=== PATIENT | female | born 1990 | race Caucasian/White ===

== ENCOUNTER 2016-11-26 22:46 | Emergency (ER) | payer MEDICAID, OTHER ==
[~2016-11-26] VITALS: Ht 152.4 cm; Wt 60.0 kg
[2016-11-26 23:38] VITALS: Ht 152.4 cm; Wt 60.0 kg
[2016-11-27] MEDS ORDERED: ONDANSETRON (ODT) 4 MG TAB ODT STA (01:18)
[2016-11-27] MEDS ORDERED: FAMOTIDINE 20 MG TAB PO ONE (01:30)
--- NOTE | 2016-11-27 01:38 | ERD ---
ER Documentation Chief Complaint Date/Time DATE: 11/27/16 TIME: 01:30 Chief Complaint Vomiting and abdominal pain started today. HPI 26-year-old female presents here in emergency department for complaints of vomiting episodes and periumbilical pain started today. Patient vomited multiple times, patient states she vomited multiple times that she found some streaks of blood in the vomit. Patient does not have any diarrhea or constipation. Patient is approximately 12 weeks . Patient is complaining of periumbilical pain, epigastric pain, burning pain, 4/10 scale, not better or worse with anything. Patient does not have any fever or chills. ROS All systems reviewed and are negative except as per history of present illness. Medications Home Meds Reported Medications [none] Unknown Strength No Conflict Check 11/27/16 Allergies Allergies: Coded Allergies: Penicillins (Verified Allergy, Mild, RASHES, 07/24/07) PMhx/Soc Medical and Surgical Hx: pt denies Medical Hx, pt denies Surgical Hx Hx Alcohol Use: No Hx Substance Use: No Hx Tobacco Use: No Smoking Status: Never smoker FmHx Family History: No coronary disease, No diabetes, No other Physical Exam Vitals Vital Signs Date Time Temp Pulse Resp B/P Pulse Ox O2 Delivery O2 Flow Rate FiO2 11/26/16 23:38 98.2 78 18 117/72 99 Physical Exam GENERAL: The patient is well developed and appropriate for usual state of health, in no apparent distress. CHEST: Clear to auscultation bilaterally. There are no rales, wheezes or rhonchi. HEART: Regular rate and rhythm. No murmurs, clicks, rubs or gallops. No S3 or S4. ABDOMEN: Soft, nontender and nondistended. Good bowel sounds. No rebound or guarding. No gross peritonitis. No gross organomegaly or masses. No Haywood sign or McBurney point tenderness. BACK: No midline or flank tenderness. EXTREMITIES: Equal pulses bilaterally. There is no peripheral clubbing, cyanosis or edema. No focal swelling or erythema. Full range of motion. Grossly neurovascularly intact. NEURO: Alert and oriented. Cranial nerves 2-12 intact. Motor strength in all 4 extremities with 5/5 strength. Sensation grossly intact. Normal speech and gait. SKIN: There is no apparent rash or petechia. The skin is warm and dry. HEMATOLOGIC AND LYMPHATIC: There is no evidence of excessive bruising or lymphedema. No gross cervical, axillary, or inguinal lymphadenopathy. Result Diagram: 11/27/16 01311/27/16 013 Results 24 hrs Laboratory Tests Test 11/27/16 01:30 White Blood Count 13.910^3/ul Red Blood Count 4.8410^6/ul Hemoglobin 14.8g/dl Hematocrit 42.6% Mean Corpuscular Volume 88.0fl Mean Corpuscular Hemoglobin 30.6pg Mean Corpuscular Hemoglobin Concent 34.7g/dl Red Cell Distribution Width 11.6% Platelet Count 56445^3/UL Mean Platelet Volume 10.0fl Neutrophils % 85.7% Lymphocytes % 8.3% Monocytes % 4.5% Eosinophils % 0.5% Basophils % 0.1% Nucleated Red Blood Cells % 0.0/100WBC Neutrophils # 11.910^3/ul Lymphocytes # 1.210^3/ul Monocytes # 0.610^3/ul Eosinophils # 0.110^3/ul Basophils # 0.010^3/ul Nucleated Red Blood Cells # 0.010^3/ul Urine Color LT. YELLOW Urine Clarity CLEAR Urine pH 6.5 Urine Specific Seymour 1.020 Urine Ketones 3+ Urine Nitrite NEGATIVE Urine Bilirubin NEGATIVE Urine Urobilinogen 0.2 E.U./dL Urine Leukocyte Esterase TRACE Urine Microscopic RBC 0-2/HPF Urine Microscopic WBC 2-5/HPF Urine Squamous Epithelial Cells FEW Urine Hemoglobin NEGATIVE Urine Glucose NEGATIVE% Urine Total Protein NEGATIVE Sodium Level 140mmol/L Potassium Level 3.5mmol/L Chloride Level 102mmol/L Carbon Dioxide Level 25mmol/L Anion Gap 17 Blood Urea Nitrogen 9mg/dl Creatinine 0.41mg/dl Glucose Level 83mg/dl Calcium Level 9.6mg/dl Total Bilirubin 0.5mg/dl Direct Bilirubin 0.00mg/dl Indirect Bilirubin 0.5mg/dl Aspartate Amino Transf (AST/SGOT) 30IU/L Alanine Aminotransferase (ALT/SGPT) 33IU/L Alkaline Phosphatase 59IU/L Total Protein 7.6g/dl Albumin 4.1g/dl Globulin 3.50g/dl Albumin/Globulin Ratio 1.17 Lipase 40U/L Beta HCG, Quantitative 414746.0mIU/ml Current Medications Medications (Trade) Dose Ordered Sig/Ayana Route PRN Reason Start Time Stop Time Status Last Admin Dose Admin Ondansetron HCl (Zofran Odt) 4 mg ONCE STAT ODT 11/27/16 01:18 11/27/16 01:20 DC 11/27/16 02:41 Famotidine (Pepcid) 20 mg ONCE ONCE PO 11/27/16 01:30 11/27/16 01:31 DC 11/27/16 02:41 Patient was given Zofran here in the emergency department. After treatment, patient was able to tolerate po fluids here in the emergency department without any vomiting. There is no signs and symptoms of dehydration. Pepcid was given here in emergency department of symptoms. PROCEDURE: Abdominal ultrasound, limited. CLINICAL INDICATION: Abdominal pain. TECHNIQUE: Multiple real-time images were acquired of the patient's right upper abdomen utilizing a high resolution transducer. COMPARISON: None FINDINGS: The liver demonstrates normal echogenicity and size measuring 14.8 cm. There is no focal mass or intrahepatic biliary ductal dilatation. The portal vein is patent. The gallbladder is not distended. No gallstones are identified. There is no pericholecystic fluid or gallbladder wall thickening. The common bile duct measures 3.7 mm in maximal dimension. The visualized portions of the pancreas are unremarkable. No free fluid is identified. The right kidney is normal size and echogenicity measuring 10.6 cm. There is no focal renal mass or echogenic calculus identified. There is no obstructive uropathy. IMPRESSION: Unremarkable right upper abdominal ultrasound. .Rafael Mack MD, MD Date Time Electronically viewed and signed by .Rafael Mack MD, MD on 11/27/2016 02:02 .T/ CC: LESLYE GAMEZ NP PROCEDURE: Obstetrical ultrasound. CLINICAL INDICATION: Pelvic pain. TECHNIQUE: Multiple sonographic images of the pelvis were obtained with transabdominal technique. Images were obtained with mac scale and color Doppler. COMPARISON: No prior studies are available for comparison. FINDINGS: There is an intrauterine gestational sac with a pole identified. heart tones of 150 beats per minute are identified. The crown-rump length averages 7.20 cm, compatible with 13 weeks and 3 days. The mean sac diameter averages 6.78 cm. A yolk sac is not visualized. No subchorionic collection is identified. There is no pelvic free fluid. Bilateral ovaries are not visualized. There is no suspicious adnexal mass identified. IMPRESSION: Single live intrauterine with an estimated gestational age of 13 weeks and 3 days, with an ultrasound CALE of 06/01/2017. Bilateral ovaries not visualized. .Rafael Mack MD, MD Date Time Electronically viewed and signed by .Rafael Mack MD, on 11/27/2016 02:03 .T/ CC: LESLYE GAMEZ DRUM PULLER Procedures/MDM Medical Decision Making: Patient's abdominal pain and vomiting nonspecific, possible viral, possible gastritis also, patient has a viable , no cholecystitis, no choledocholithiasis noted. Viable without any subchorionic hemorrhage. No symptoms of electrolyte imbalance. There is low suspicion for abdominal emergencies at this time. Patients abdominal exam is normal at this time. Patients radiology exam does not show any abdominal emergencies at this time. There is low suspicion for appendicitis, cholecystitis , abdominal aortic aneurysms or peritonitis at this time. There is low suspicion for sepsis. Patient appears well and is hemodynamically stable. Patient also has urinary tract infection and will be treated. No symptoms of pyelonephritis. Disposition: Home. Condition: Stable Prescription Tylenol, Zofran, Macrobid, Pepcid Instructions: Patient is advised to take medications as prescribed. Patient is advised to rest, increase fluid intake and do brat diet for next 1-2 days and progress as tolerated. Patient is advised that if symptoms are worse, severe abdominal pain, uncontrolled vomiting, high fever, severe flank pain, worst signs and symptoms, to return to the emergency department immediately. Otherwise, patient can follow up with primary care doctor in 5-7 days. Departure Diagnosis: Primary Impression: UTI (urinary tract infection) Urinary tract infection type: acute cystitis Hematuria presence: without hematuria Qualified Code: N30.00 - Acute cystitis without hematuria Additional Impressions: Vomiting Vomiting type: unspecified Vomiting Intractability: unspecified Nausea presence: unspecified Qualified Code: R11.10 - Vomiting, intractability of vomiting not specified, presence of nausea not specified, unspecified vomiting type Abdominal pain Abdominal location: epigastric Qualified Code: R10.13 - Epigastric pain Intrauterine Condition: Stable Patient Instructions: Abdominal Pain, Understanding Urinary Tract Infections ( UTIs), Vomiting (6Y-Adult) Additional Instructions: Patient is advised to take medications as prescribed. Patient is advised to rest, increase fluid intake and do brat diet for next 1-2 days and progress as tolerated. Patient is advised that if symptoms are worse, severe abdominal pain , uncontrolled vomiting, high fever, severe flank pain, worst signs and symptoms , to return to the emergency department immediately. Otherwise, patient can follow up with primary care doctor in 5-7 days. LESLYE GAMEZ NP Nov 27, 2016 01:38
[2016-11-27 01:56] LABS: ADD SCAN DIFF NO
[2016-11-27 02:01] LABS: BASOPHILS % 0.1 % (0.0-2.0); EOSINOPHILS # 0.1 10^3/ul (0.0-0.5); EOSINOPHILS % 0.5 % (0.0-7.0); HEMATOCRIT 42.6 % (37.0-47.0); HEMOGLOBIN 14.8 g/dl (12.0-16.0); LYMPHOCYTES # 1.2 10^3/ul (0.8-2.9); LYMPHOCYTES % 8.3 % (15.0-51.0); MEAN CORPUSCULAR HEMOGLOBIN 30.6 pg (29.0-33.0); MEAN CORPUSCULAR HGB CONC 34.7 g/dl (32.0-37.0); MONOCYTE # 0.6 10^3/ul (0.3-0.9); MONOCYTES % 4.5 % (0.0-11.0); NEUTROPHIL # 11.9 10^3/ul (1.6-7.5); NEUTROPHILS % 85.7 % (39.0-77.0); PLATELET COUNT 209 10^3/UL (140-415); RED BLOOD COUNT 4.84 10^6/ul (4.20-5.40); RED CELL DISTRIBUTION WIDTH 11.6 % (11.5-14.5); WHITE BLOOD COUNT 13.9 10^3/ul (4.8-10.8)
--- NOTE | 2016-11-27 02:02 | RADRPT ---
PROCEDURE: Abdominal ultrasound, limited. CLINICAL INDICATION: Abdominal pain. TECHNIQUE: Multiple real-time images were acquired of the patient's right upper abdomen utilizing a high resolution transducer. COMPARISON: None FINDINGS: The liver demonstrates normal echogenicity and size measuring 14.8 cm. There is no focal mass or in trahepatic biliary ductal dilatation. The portal vein is patent. The gallbladder is not distended. No gallstones are identified. There is no pericholecystic fluid or gallbladder wall thickening. The common bile duct measures 3.7 mm in maximal dimension. The visualized portions of the pancreas are unremarkable. No free fluid is identified. The right kidney is normal size and echogenicity measuring 10.6 cm. There is no focal renal mass or echogenic calculus identified. There is no obstructive uropathy. IMPRESSION: Unremarkable right upper abdominal ultrasound. .Rafael Mack MD, MD Date Time Electronically viewed and signed by .Rafael Mack MD, MD on 11/27/2016 02:02 .T/
--- NOTE | 2016-11-27 02:03 | RADRPT ---
PROCEDURE: Obstetrical ultrasound. CLINICAL INDICATION: Pelvic pain. TECHNIQUE: Multiple sonographic images of the pelvis were obtained with transabdominal technique. Images were obtained with mac scale and color Doppler. COMPARISON: No prior studies are available for comparison. FINDINGS: There is an intrauterine gestational sac with a pole identified. heart tones of 150 beat s per minute are identified. The crown-rump length averages 7.20 cm, compatible with 13 weeks and 3 days. The mean sac diameter averages 6.78 cm. A yolk sac is not visualized. No subchorionic co llection is identified. There is no pelvic free fluid. Bilateral ovaries are not visualized. There is no suspicious adnexal mass identified. IMPRESSION: Single live intrauterine with an estimated gestational age of 13 weeks and 3 days, with an ultrasound CALE of 06/01/2017. Bilateral ovaries not visualized. .Rafael Mack MD, Date Time Electronically viewed and signed by .Rafael Mack MD, on 11/27/2016 02:03 .T/
[2016-11-27 02:08] LABS: ADD UMIC YES; URINE BILIRUBIN (Dip) NEGATIVE (NEGATIVE); URINE BLOOD (Dip) NEGATIVE (NEGATIVE); URINE COLOR LT. YELLOW (YELLOW); URINE GLUCOSE (Dip) NEGATIVE (NEGATIVE); URINE KETONES (Dip) 3+ (NEGATIVE); URINE LEUKOCYTE ESTERASE (Dip) TRACE (NEGATIVE); URINE NITRITE (Dip) NEGATIVE (NEGATIVE); URINE TOTAL PROTEIN (Dip) NEGATIVE (NEGATIVE); URINE UROBILINOGEN (Dip) 0.2 E.U./dL (0.1-1.0)
[2016-11-27 02:12] LABS: ALBUMIN 4.1 g/dl (3.3-4.9)
[2016-11-27 02:13] LABS: POTASSIUM 3.5 mmol/L (3.5-5.1)
[2016-11-27 02:15] LABS: BILIRUBIN,INDIRECT 0.5 mg/dl (0-1.1); BILIRUBIN,TOTAL 0.5 mg/dl (0.2-1.3); CREATININE 0.41 mg/dl (0.44-1.00)
[2016-11-27 02:16] LABS: ALBUMIN/GLOBULIN RATIO 1.17; CALCIUM 9.6 mg/dl (8.4-10.2); TOTAL PROTEIN 7.6 g/dl (6.1-8.1)
[2016-11-27 02:17] LABS: SQUAMOUS EPITHELIAL CELL,UR FEW; URINE RBCS 0-2 /HPF (0)
[2016-11-27] MEDS ORDERED: ACET500C5 PO (03:37)
[2016-11-27] MEDS ORDERED: ONDA4TAB14 PO (03:37)
[2016-11-27] MEDS ORDERED: NITR-58 PO (03:37)
== END 2016-11-27 04:20 | disposition home or self-care (01) ==
LOC: FTE 22:46
DX: O23.41 Unspecified infection of urinary tract in pregnancy, first trimester (principal); O26.891 Other specified pregnancy related conditions, first trimester; R10.13 Epigastric pain; R10.2 Pelvic and perineal pain
CPT/HCPCS: 36415; 76705; 76805; 80053; 81001; 83690; 84702; 85025; 86900; 86901; Z7502; Z7610; 81003

== ENCOUNTER 2017-05-28 15:41 | Outpatient (CLI) | payer MEDICAID ==
[~2017-05-28] VITALS: Ht 152.4 cm; Wt 75.9 kg
[~2017-05-28 15:41] MED LIST: ACET500C5 PO; NITR-58 PO; ONDA4TAB14 PO
[2017-05-28 15:59] VITALS: Ht 152.4 cm; Wt 75.9 kg
[2017-05-28 16:00] VITALS: BP 103/64; PULSE 64; RESP 18
[2017-05-28] MEDS ORDERED: PRENAT PO (16:02)
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
[2017-05-28 16:43] LABS: BASOPHILS % 0.5 % (0.0-2.0); EOSINOPHILS # 0.1 10^3/ul (0.0-0.5); EOSINOPHILS % 1.6 % (0.0-7.0); HEMATOCRIT 38.1 % (37.0-47.0); HEMOGLOBIN 13.2 g/dl (12.0-16.0); LYMPHOCYTES # 0.9 10^3/ul (0.8-2.9); LYMPHOCYTES % 14.9 % (15.0-51.0); MEAN CORPUSCULAR HEMOGLOBIN 31.3 pg (29.0-33.0); MEAN CORPUSCULAR HGB CONC 34.6 g/dl (32.0-37.0); MEAN CORPUSCULAR VOLUME 90.3 fl (82.0-101.0); MEAN PLATELET VOLUME 10.9 fl (7.4-10.4); MONOCYTE # 0.6 10^3/ul (0.3-0.9); MONOCYTES % 9.1 % (0.0-11.0); NEUTROPHIL # 4.5 10^3/ul (1.6-7.5); NEUTROPHILS % 72.3 % (39.0-77.0); PLATELET COUNT 150 10^3/UL (140-415); RED BLOOD COUNT 4.22 10^6/ul (4.20-5.40); RED CELL DISTRIBUTION WIDTH 12.4 % (11.5-14.5); WHITE BLOOD COUNT 6.2 10^3/ul (4.8-10.8)
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
== END 2017-05-28 20:20 | disposition home or self-care (01) ==
LOC: OBT 15:41 → L-D 15:42 → OBT 20:02
PROVIDERS: ATTEND Obstetrics & Gynecology
DX: O26.893 Other specified pregnancy related conditions, third trimester (principal); Z3A.39 39 weeks gestation of pregnancy; R10.2 Pelvic and perineal pain
CPT/HCPCS: 76815; 85025; 85384; G0463

== ENCOUNTER 2017-05-30 06:52 | Inpatient (IN) | payer MEDICAID ==
[~2017-05-30] VITALS: Ht 152.4 cm; Wt 74.6 kg
[~2017-05-30 06:52] MED LIST changes: -NITR-58 PO; -ONDA4TAB14 PO; +PRENAT PO
[2017-05-30 07:24] VITALS: Ht 152.4 cm; Wt 74.6 kg
[2017-05-30 07:25] VITALS: BP 116/57; PULSE 68; RESP 18
[2017-05-30] MEDS ORDERED: METHYLERGONOVINE 0.2 MG INJ IM PRN ×2 (09:00→13:30)
[2017-05-30] MEDS ORDERED: LACTATED RINGER'S 1,000 ML IV PRN (09:00)
[2017-05-30] MEDS ORDERED: CARBOPROST 250 MCG INJ IM PRN ×2 (09:00→13:30)
[2017-05-30] MEDS ORDERED: MISOPROSTOL 200 MCG TAB PR PRN ×2 (09:00→13:30)
[2017-05-30] MEDS ORDERED: OXYTOCIN 30 UNITS/LR 500 ML IV SCH ×2 (09:00→13:14)
[2017-05-30] MEDS ORDERED: LIDOCAINE 1% (MPF) 30 ML INJ INJ PRN (09:00)
[2017-05-30] MEDS ORDERED: BUTORPHANOL 2 MG INJ IV PRN (09:00)
[2017-05-30] MEDS ORDERED: OXYTOCIN 30 UNITS/LR 500 ML IV PRN ×2 (09:00→13:30)
[2017-05-30] MEDS ORDERED: LACTATED RINGER'S 1,000 ML IV SCH (09:00)
[2017-05-30 09:10] LABS: BASOPHILS % 0.4 % (0.0-2.0); EOSINOPHILS # 0.1 10^3/ul (0.0-0.5); EOSINOPHILS % 1.2 % (0.0-7.0); HEMATOCRIT 41.8 % (37.0-47.0); HEMOGLOBIN 14.3 g/dl (12.0-16.0); LYMPHOCYTES % 11.9 % (15.0-51.0); MEAN CORPUSCULAR HEMOGLOBIN 30.8 pg (29.0-33.0); MEAN CORPUSCULAR HGB CONC 34.2 g/dl (32.0-37.0); MEAN CORPUSCULAR VOLUME 89.9 fl (82.0-101.0); MEAN PLATELET VOLUME 11.9 fl (7.4-10.4); MONOCYTE # 0.7 10^3/ul (0.3-0.9); MONOCYTES % 8.6 % (0.0-11.0); NEUTROPHIL # 6.2 10^3/ul (1.6-7.5); NEUTROPHILS % 76.7 % (39.0-77.0); PLATELET COUNT 166 10^3/UL (140-415); RED BLOOD COUNT 4.65 10^6/ul (4.20-5.40); RED CELL DISTRIBUTION WIDTH 12.6 % (11.5-14.5); WHITE BLOOD COUNT 8.1 10^3/ul (4.8-10.8)
[2017-05-30 09:31] LABS: INR 0.91; PROTIME 12.3 Sec (12.2-14.2)
[2017-05-30 09:32] LABS: PARTIAL THROMBOPLASTIN TIME 29.3 Sec (25.0-35.0)
[2017-05-30] MEDS: OXYTOCIN 30 UNITS/LR 500 ML IV SCH ×2 (12:46→13:18)
[2017-05-30] MEDS: LACTATED RINGER'S 1,000 ML IV* SCH ×2 (13:14→21:14)
--- NOTE | 2017-05-30 13:24 | LDN ---
Date/Time of Note Date/Time of Note DATE: 05/30/17 TIME: 13:21 Delivery Summary of a viable baby boy weighing 3290 grams or 7# 4 oz, 20" long and with Apgars of 9/9. Weeks of Gestation 39w 5d Placenta Delivered: Spontaneously Meconium: none Episiotomy: Yes Indication for episiotomy Tight entroitus with thick perineum. Tissue was not tearing on own. Laceration repair: Episiotomy repaired with 2-0 chromic. Anesthesia type: Local Estimated blood loss: 150 Sponge & Needle done & correct: Yes All needle counts correct: Yes Any foreign bodies felt in the: No (vagina) Problems: Infant Delivery Information Sex Sex: male Apgars 1 Minute: 9 5 Minute: 9 Suctioning Nose & mouth suctioned at marnie: Yes Delee suction performed: No Umbilical Cord Umbilical cord with: 3 Vessels Cord presentations: nuchal cord Nuchal cord present X: 1 Cord Blood was obtained: Yes Mother & Baby Disposition Disposition Mom & Baby to Maternity; Good: Yes Baby to NICU: No CLARY TRAN MD May 30, 2017 13:24
--- NOTE | 2017-05-30 13:28 | HP ---
Date/Time of Note Date/Time of Note DATE: 05/30/17 TIME: 13:24 OB - History Hx of Present Free Text/Dictation 26 y.o. with an IUP at 39w 5d came in labor with a cervical exam of 90%/4cm /-2 station and intact. Chief Complaint: Labor. Estimated Due Date: Jun 01, 2017 : 2 Para: 1 Care: Good Care Ultrasounds: Normal mid trimester US Obstetrical Complications: None Medical Complications: None Past Family/Social History * Past Medical, Surgical, Family and Obstetric Histories reviewed from chart. Blood Type: O+ Rubella: immune RPR/VDRL: Negative GBS Status: Negative HBsAG: Negative OB Admission Exam Vital Signs Vital Signs Vital Signs Date Time Temp Pulse Resp B/P Pulse Ox O2 Delivery O2 Flow Rate FiO2 05/30/17 07:25 97.8 68 18 116/57 Room Air Physical Exam Lungs: Clear Abdomen: WNL Extremities: Normal Reflexes: Normal Cervical Dilatation: 4cm Effacement: Other (90%) Station: -2 Membranes: Intact Amniotic Fluid: Clear Heart Rate: 140's Accelerations: Accelerations Present Decelerations: No Decelerations Varibility: Moderate Contractions on Admission: < 5 Minutes Apart Last 72 hours Lab Results CBC & BMP 05/30/17 08:00 OB Assessment/Plan Reason for admission: active labor Plan: Expectant Management CLARY TRAN MD May 30, 2017 13:28
[2017-05-30] MEDS ORDERED: LANOLIN 7 GM TUBE TOP PRN (13:30)
[2017-05-30] MEDS ORDERED: IBUPROFEN 600 MG TAB PO ONE (13:30)
[2017-05-30] MEDS ORDERED: BENZOCAINE 20% 56 ML SPRAY TOP PRN (13:30)
[2017-05-30] MEDS ORDERED: HYDROCODONE/APAP (5/325) TAB PO PRN (13:30)
[2017-05-30 15:45] VITALS: BP 125/65; PULSE 66; RESP 17
[2017-05-30] MEDS: IBUPROFEN 600 MG TAB PO SCH ×2 (17:48→23:50)
[2017-05-30 19:50] VITALS: BP 104/61; PULSE 79; RESP 20
[2017-05-31 00:01] VITALS: BP 90/57; PULSE 80; RESP 18
[2017-05-31 03:20] VITALS: BP 99/54; PULSE 69; RESP 20
[2017-05-31] MEDS: LACTATED RINGER'S 1,000 ML IV* SCH ×2 (05:14→13:14)
[2017-05-31] MEDS: IBUPROFEN 600 MG TAB PO SCH ×4 (05:26→23:45)
[2017-05-31 06:48] LABS: BASOPHILS % 0.5 % (0.0-2.0); EOSINOPHILS # 0.2 10^3/ul (0.0-0.5); EOSINOPHILS % 1.9 % (0.0-7.0); HEMATOCRIT 36.8 % (37.0-47.0); HEMOGLOBIN 12.4 g/dl (12.0-16.0); LYMPHOCYTES # 1.4 10^3/ul (0.8-2.9); LYMPHOCYTES % 16.4 % (15.0-51.0); MEAN CORPUSCULAR HEMOGLOBIN 30.5 pg (29.0-33.0); MEAN CORPUSCULAR HGB CONC 33.7 g/dl (32.0-37.0); MEAN CORPUSCULAR VOLUME 90.6 fl (82.0-101.0); MEAN PLATELET VOLUME 11.3 fl (7.4-10.4); MONOCYTE # 0.8 10^3/ul (0.3-0.9); MONOCYTES % 9.4 % (0.0-11.0); NEUTROPHIL # 5.9 10^3/ul (1.6-7.5); NEUTROPHILS % 70.4 % (39.0-77.0); PLATELET COUNT 145 10^3/UL (140-415); RED BLOOD COUNT 4.06 10^6/ul (4.20-5.40); RED CELL DISTRIBUTION WIDTH 12.9 % (11.5-14.5); WHITE BLOOD COUNT 8.4 10^3/ul (4.8-10.8)
[2017-05-31 08:15] VITALS: BP 105/51; PULSE 74; RESP 16
--- NOTE | 2017-05-31 15:48 | QN ---
Documentation Comment No complaint Afebrile VSS Fundus firm Lochia scant PPD #1 Stable Routine pp care. ALPA SANCHEZ MD May 31, 2017 15:48
[2017-05-31 16:00] VITALS: BP 109/62; PULSE 79; RESP 16
--- NOTE | 2017-05-31 16:31 | DS ---
Date/Time of Note Date/Time of Note DATE: 05/31/17 TIME: 16:30 Obstetrical Discharge Record Final Diagnosis Final Diagnosis: Term delivered Vaginal Delivery Obstetrical Delivery: Spontaneous Condition on Discharge Physical Assessment Voiding: Yes Bowel Movement: Yes Breast: Soft, non-tender, Filling Fundus: Firm Calf Tenderness: No Patient Condition: Stable ALPA SANCHEZ MD May 31, 2017 16:31
[2017-05-31 19:45] VITALS: BP 102/62; PULSE 72; RESP 20
[2017-06-01 03:55] VITALS: BP 92/55; PULSE 66; RESP 18
[2017-06-01] MEDS: IBUPROFEN 600 MG TAB PO SCH ×2 (06:05→11:38)
[2017-06-01 08:00] VITALS: BP 106/59; PULSE 69; RESP 19
[2017-06-01] MEDS ORDERED: DIPHTH/TET/ACEL PERTUSS (ADULT) 0.5 ML VIAL IM* ONE (09:00)
[2017-06-01] MEDS ORDERED: INFLUENZA VIRUS VACCINE 0.5 ML SYG IM* ONE (09:00)
== END 2017-06-01 15:09 | disposition home or self-care (01) | DRG 775 ==
LOC: OBT 06:52 → L-D 06:53 → OBT 07:55 → L-D 07:55 → PP1 15:30
PROVIDERS: ADMIT Obstetrics & Gynecology; ATTEND Obstetrics & Gynecology
PROC: 10E0XZZ Delivery of Products of Conception, External Approach (ICD-10-PCS; principal; 2017-05-30)
PROC: 0W8NXZZ Division of Female Perineum, External Approach (ICD-10-PCS; 2017-05-30)
DX: O69.81X0 Labor and delivery complicated by cord around neck, without compression, not applicable or unspecified (principal); Z37.0 Single live birth; Z3A.39 39 weeks gestation of pregnancy
CPT/HCPCS: 85025; 85610; 85730; 86592; 86900; 86901; 90686; 90715; G0463; J2590; J7120